=== PATIENT | female | born 1960 | race Caucasian/White ===

== ENCOUNTER → 2016-10-11 | Outpatient (CLI) | payer BC | LOC: MAMMO 08:45 | DX: Z12.31 Encounter for screening mammogram for malignant neoplasm of breast (principal) | CPT/HCPCS: G0202 ==

== ENCOUNTER → 2018-08-27 | Outpatient (CLI) | payer BC ==
[~2018-08-27] VITALS: Ht 157.5 cm; Wt 91.4 kg
[~2018-08-27] MED LIST: EUTHYROX100 MCG PO; NOVOLOG 100U100 U/ML SQ; PRISTIQ50 M1 PO; RAMIPRIL5 MG PO; SPIRONOLACTONE/1 TAB PO; TOPROL-XL200 MG PO; WELLBUTRIN XL150 M2 PO; ZOCOR40 M1 PO
[2018-08-27 09:47] VITALS: BP 132/74
[2018-08-27 10:24] LABS: HEMATOCRIT 47.2 % (37.0-47.0); HEMOGLOBIN 15.4 g/dL (12.5-16.0); MEAN PLATELET VOLUME 10.5 fl (7.4-10.4); RED BLOOD COUNT 5.45 M/mm3 (4.10-5.30); RED CELL DISTRIBUTION WIDTH 13.8 % (11.5-14.5)
[2018-08-27 10:49] LABS: ALBUMIN 4.5 g/dL (3.5-5.0); CALCIUM 9.3 mg/dL (8.4-10.2); POTASSIUM 4.5 mmol/L (3.6-5.0); TOTAL BILIRUBIN 0.7 mg/dL (0.2-1.3); TOTAL PROTEIN 7.8 g/dL (6.3-8.2)
[2018-08-27 11:18] VITALS: BP 111/60
== END ==
LOC: AMSURD 09:28
PROVIDERS: Nurse Practitioner
DX: E86.0 Dehydration (principal)
CPT/HCPCS: J7030

== ENCOUNTER → 2018-11-08 | Outpatient (CLI) | payer BC ==
[2018-08-27 11:18] VITALS: BP 111/60
== END ==
LOC: RAD 17:40
DX: J18.9 Pneumonia, unspecified organism (principal)

== ENCOUNTER → 2019-02-19 | Outpatient (CLI) | payer BC ==
[2018-08-27 11:18] VITALS: BP 111/60
== END ==
LOC: MAMMO 09:02
DX: Z12.31 Encounter for screening mammogram for malignant neoplasm of breast (principal)

== ENCOUNTER → 2019-04-10 | Outpatient (CLI) | payer BC ==
[2018-08-27 11:18] VITALS: BP 111/60
[2019-04-10 16:15] LABS: D-DIMER 0.11 mg/L FEU (0.15-0.50)
== END ==
LOC: LAB 15:31
PROVIDERS: Nurse Practitioner
DX: M79.601 Pain in right arm (principal)

== ENCOUNTER → 2020-03-18 | Outpatient (CLI) | payer BC ==
[2018-08-27 11:18] VITALS: BP 111/60
== END ==
LOC: LAB 18:10
DX: R30.0 Dysuria (principal)

== ENCOUNTER → 2020-07-16 | Outpatient (CLI) | payer BC ==
[2018-08-27 11:18] VITALS: BP 111/60
[2020-07-16 08:33] LABS: POTASSIUM 4.3 mmol/L (3.5-5.1)
[2020-07-16 08:34] LABS: CALCIUM 9.3 mg/dL (8.3-10.5)
[2020-07-16 08:35] LABS: TOTAL PROTEIN 7.2 g/dL (6.4-8.3)
[2020-07-16 08:37] LABS: TOTAL BILIRUBIN 0.4 mg/dL (0.2-1.2)
[2020-07-16 08:49] LABS: BASO # 0.1 (0.02-0.10); EOS # 0.2 (0.04-0.40); EOS % 2.6 % (1.0-5.0); HEMATOCRIT 49.2 % (37.0-47.0); HEMOGLOBIN 16.2 g/dL (12.5-16.0); LYMPH# 1.6 (1.50-4.00); MEAN CELL VOLUME 87 fl (78-100); MEAN CORPUSCULAR HEMOGLOBIN 29 pg (27-31); MEAN CORPUSCULAR HGB CONC 33 g/dL (33-37); MONO # 0.8 (0.20-0.80); NEU # 4.5 (1.40-6.50); PLATELET COUNT 285 K/mm3 (130-400); RED BLOOD COUNT 5.65 M/mm3 (4.10-5.30); RED CELL DISTRIBUTION WIDTH 13.4 % (11.5-14.5); WHITE BLOOD COUNT 7.2 K/mm3 (4.8-10.8)
[2020-07-16 09:16] LABS: URINE APPEARANCE CLEAR; URINE BILIRUBIN NEGATIVE (NEGATIVE); URINE BLOOD 250 ery/uL (NEGATIVE); URINE COLOR YELLOW; URINE GLUCOSE NEGATIVE (NEGATIVE); URINE KETONE NEGATIVE (NEGATIVE); URINE LEUKOCYTE ESTERASE NEGATIVE (NEGATIVE); URINE NITRATE NEGATIVE (NEGATIVE); URINE PROTEIN(semi-quant) 1+ mg/dL (NEGATIVE); URINE UROBILINOGEN NORMAL (NORMAL)
== END ==
LOC: LAB 07:55
PROVIDERS: Family Medicine
DX: Z00.00 Encounter for general adult medical examination without abnormal findings (principal); E78.5 Hyperlipidemia, unspecified; E11.9 Type 2 diabetes mellitus without complications; E66.01 Morbid (severe) obesity due to excess calories

== ENCOUNTER → 2020-08-24 | Outpatient (CLI) | payer BC ==
[2018-08-27 11:18] VITALS: BP 111/60
== END ==
LOC: MAMMO 07:00 → RAD 07:00
DX: Z12.31 Encounter for screening mammogram for malignant neoplasm of breast (principal); R31.29 Other microscopic hematuria
CPT/HCPCS: Q9967

== ENCOUNTER → 2020-12-14 | Outpatient (CLI) | payer BC | LOC: RAD 15:29 | DX: R05 Cough (principal) ==

== ENCOUNTER → 2021-08-20 | Outpatient (CLI) | payer BC ==
[2021-08-20 08:13] LABS: BASO # 0.08 K/mm3 (0.02-0.10); EOS # 0.21 K/mm3 (0.04-0.40); EOS % 2.9 % (1.0-5.0); HEMOGLOBIN 15.7 g/dL (12.5-16.0); LYMPH# 1.97 K/mm3 (1.50-4.00); MEAN CELL VOLUME 88 fl (78-100); MEAN CORPUSCULAR HEMOGLOBIN 30 pg (27-31); MEAN CORPUSCULAR HGB CONC 33 g/dL (33-37); MEAN PLATELET VOLUME 10.4 fl (7.4-10.4); MONO # 0.44 K/mm3 (0.20-0.80); NEU # 4.48 K/mm3 (1.40-6.50); PLATELET COUNT 323 K/mm3 (130-400); RED BLOOD COUNT 5.32 M/mm3 (4.10-5.30); RED CELL DISTRIBUTION WIDTH 13.1 % (11.5-14.5); WHITE BLOOD COUNT 7.2 K/mm3 (4.8-10.8)
[2021-08-20 08:18] LABS: ALBUMIN 4.1 g/dL (3.5-5.0); POTASSIUM 4.9 mmol/L (3.5-5.1)
[2021-08-20 08:19] LABS: CALCIUM 9.7 mg/dL (8.3-10.5)
[2021-08-20 08:20] LABS: TOTAL PROTEIN 7.5 g/dL (6.4-8.3)
[2021-08-20 08:22] LABS: TOTAL BILIRUBIN 0.5 mg/dL (0.2-1.2)
[2021-08-20 10:34] LABS: URINE APPEARANCE HAZY; URINE BILIRUBIN NEGATIVE (NEGATIVE); URINE BLOOD TRACE (NEGATIVE); URINE COLOR YELLOW; URINE GLUCOSE NEGATIVE (NEGATIVE); URINE KETONE NEGATIVE (NEGATIVE); URINE LEUKOCYTE ESTERASE NEGATIVE (NEGATIVE); URINE NITRATE NEGATIVE (NEGATIVE); URINE PROTEIN(semi-quant) TRACE (NEGATIVE); URINE UROBILINOGEN NORMAL (NORMAL); URINE WBC 0-1 /hpf (0-3)
== END ==
LOC: LAB 07:32
PROVIDERS: Family Medicine
DX: Z00.00 Encounter for general adult medical examination without abnormal findings (principal); E78.5 Hyperlipidemia, unspecified; E11.9 Type 2 diabetes mellitus without complications; E03.9 Hypothyroidism, unspecified; R31.29 Other microscopic hematuria

== ENCOUNTER → 2021-09-16 | Outpatient (CLI) | payer BC | LOC: MAMMO 09:01 | DX: Z12.31 Encounter for screening mammogram for malignant neoplasm of breast (principal) ==

== ENCOUNTER → 2022-09-07 | Outpatient (CLI) | payer BC ==
[2022-09-07 12:16] LABS: BASO # 0.06 K/mm3 (0.02-0.10); EOS # 0.23 K/mm3 (0.04-0.40); EOS % 2.6 % (1.0-5.0); HEMOGLOBIN 15.2 g/dL (12.5-16.0); MEAN CELL VOLUME 87 fl (78-100); MEAN CORPUSCULAR HEMOGLOBIN 30 pg (27-31); MEAN CORPUSCULAR HGB CONC 34 g/dL (33-37); MEAN PLATELET VOLUME 9.6 fl (7.4-10.4); MONO # 0.56 K/mm3 (0.20-0.80); NEU # 5.23 K/mm3 (1.40-6.50); PLATELET COUNT 265 K/mm3 (130-400); RED BLOOD COUNT 5.16 M/mm3 (4.10-5.30); RED CELL DISTRIBUTION WIDTH 12.4 % (11.5-14.5); WHITE BLOOD COUNT 8.8 K/mm3 (4.8-10.8)
== END ==
LOC: LAB 11:14
PROVIDERS: Nurse Practitioner Family
DX: R05.9 Cough, unspecified (principal)

== ENCOUNTER → 2024-05-28 | Outpatient (CLI) | payer BC | LOC: RAD 11:28 | DX: Z12.31 Encounter for screening mammogram for malignant neoplasm of breast (principal); M19.042 Primary osteoarthritis, left hand; M19.041 Primary osteoarthritis, right hand ==

== ENCOUNTER → 2024-06-05 | Outpatient (CLI) | payer BC | LOC: MAMMO 13:30 | DX: Z12.39 Encounter for other screening for malignant neoplasm of breast (principal); M79.641 Pain in right hand; M79.642 Pain in left hand ==

== ENCOUNTER 2024-09-23 10:28 | Emergency (ER) | payer BC ==
[2024-09-23] MEDS ORDERED: Ondansetron 4 MG/2 ML VIAL IV ONE (11:15)
[2024-09-23] MEDS ORDERED: NS 1,000 ML IV SCH (11:15)
[2024-09-23 11:31] LABS: BASO # 0.01 K/mm3 (0.02-0.10); EOS # 0.17 K/mm3 (0.04-0.40); EOS % 1.8 % (1.0-5.0); HEMATOCRIT 49.8 % (37.0-47.0); HEMOGLOBIN 16.7 g/dL (12.5-16.0); LYMPH# 1.76 K/mm3 (1.50-4.00); MEAN CELL VOLUME 87 fl (78-100); MEAN CORPUSCULAR HEMOGLOBIN 29 pg (27-31); MEAN CORPUSCULAR HGB CONC 34 g/dL (33-37); MEAN PLATELET VOLUME 10.3 fl (7.4-10.4); MONO # 0.87 K/mm3 (0.20-0.80); NEU # 6.69 K/mm3 (1.40-6.50); PLATELET COUNT 328 K/mm3 (130-400); RED CELL DISTRIBUTION WIDTH 13.5 % (11.5-14.5); WHITE BLOOD COUNT 9.5 K/mm3 (4.8-10.8)
[2024-09-23 11:35] LABS: ALBUMIN 3.7 g/dL (3.4-4.8)
[2024-09-23 11:36] LABS: CALCIUM 8.7 mg/dL (8.3-10.5)
[2024-09-23 11:39] LABS: TOTAL BILIRUBIN 0.4 mg/dL (0.2-1.2)
[2024-09-23] MEDS ORDERED: Loperamide 2 MG CAP PO ONE (12:00)
[2024-09-23] MEDS ORDERED: ZOFRAN ODT4 MG PO (13:15)
[2024-09-23] MEDS ORDERED: PHENTERMINE H37.5 M2 PO (13:19)
[2024-09-23] MEDS ORDERED: VILAZODONE HCL20 MG PO (13:20)
[2024-09-23 13:35] VITALS: BP 152/83
== END 2024-09-23 13:35 | disposition home or self-care (01) ==
LOC: ED 10:28
PROVIDERS: Physician Assistant
DX: K52.9 Noninfective gastroenteritis and colitis, unspecified (principal); Z90.49 Acquired absence of other specified parts of digestive tract
CPT/HCPCS: J2405; J7030

== ENCOUNTER 2024-09-24 08:17 | Observation (INO) | payer BC ==
[~2024-09-24] VITALS: Ht 157.5 cm; Wt 90.3 kg
[~2024-09-24 08:17] MED LIST changes: +PHENTERMINE H37.5 M2 PO; +VILAZODONE HCL20 MG PO; +ZOFRAN ODT4 MG PO
[2024-09-24] MEDS ORDERED: NS 1,000 ML IV SCH ×2 (09:00→11:00)
[2024-09-24 09:14] LABS: BASO # 0.01 K/mm3 (0.02-0.10); EOS # 0.31 K/mm3 (0.04-0.40); HEMATOCRIT 53.1 % (37.0-47.0); HEMOGLOBIN 17.4 g/dL (12.5-16.0); MEAN CELL VOLUME 89 fl (78-100); MEAN CORPUSCULAR HEMOGLOBIN 29 pg (27-31); MEAN CORPUSCULAR HGB CONC 33 g/dL (33-37); MEAN PLATELET VOLUME 10.9 fl (7.4-10.4); MONO # 0.69 K/mm3 (0.20-0.80); NEU # 7.65 K/mm3 (1.40-6.50); PLATELET COUNT 394 K/mm3 (130-400); RED BLOOD COUNT 5.94 M/mm3 (4.10-5.30); RED CELL DISTRIBUTION WIDTH 13.6 % (11.5-14.5); WHITE BLOOD COUNT 10.4 K/mm3 (4.8-10.8)
[2024-09-24 09:16] LABS: ALBUMIN 4.1 g/dL (3.4-4.8); SODIUM 135 mmol/L (136-145)
[2024-09-24 09:19] LABS: GLUCOSE 371 mg/dL (65-105); TOTAL PROTEIN 7.7 g/dL (6.2-8.1)
[2024-09-24 09:21] LABS: TOTAL BILIRUBIN 0.4 mg/dL (0.2-1.2)
[2024-09-24 09:22] LABS: CARBON DIOXIDE 15 mmol/L (23-31)
[2024-09-24 09:24] LABS: AST-SGOT 18 U/L (5-34)
[2024-09-24 09:25] LABS: ALT/SGPT 21 U/L (0-55)
[2024-09-24 09:26] LABS: LIPASE < 4 U/L (8-78)
[2024-09-24] MEDS ORDERED: Iohexol 300 - 100 ML VIAL IV ONE (09:31)
[2024-09-24] MEDS ORDERED: NS 100 ML IV SCH (09:32)
[2024-09-24] MEDS ORDERED: Ondansetron 4 MG/2 ML VIAL IV PRN (10:45)
[2024-09-24] MEDS ORDERED: Acetaminophen 325 MG TAB PO PRN (10:45)
[2024-09-24] MEDS ORDERED: Pantoprazole 40 MG in NS 10 ML IV SCH (10:45)
--- NOTE | 2024-09-24 11:00 | NUR ---
Pt admits to room 208 from ED. Is Ox4, denies pain, VSS. Reports diarrhea x 3 while in ED this AM and several episodes since arrival to room. IV fluids infusing to IV RAC. Pt has own insulin pump to site L upper abdomen. Site is CDI, without redness. Pt reports placing it within last 2-3 days. Current fsbs 261. Basal rate humalog 32.6u/24 hours. Pt denies feeling dizzy/lightheaded. Stands without assist. Given room privledges. at bedside. Pt sitting in recliner, call light and belongings within reach.
[2024-09-24 12:19] VITALS: BP 149/76
--- NOTE | 2024-09-24 12:30 | NUR ---
Discussed policy regarding using pt own external insulin pump. Pt understood and agreed to sign agreement.
[2024-09-24] MEDS ORDERED: Nicotine 14 MG DAILY PATCH TD SCH (14:03)
--- NOTE | 2024-09-24 14:15 | NUR ---
Pt comes to nurses station to request nicotine patch. Inform that I just pulled it, provider had been busy and just got order placed. Follow back to room. Pt lying in bed, states that she does not feel good. On elaboration, reports feeling "everything is stuck in my chest." Wants to know if fluids can be stopped. Says that everything that she drank today feels stuck in her chest, then reports wanting to go home. States "I can sleep better in my own bed." "I'm just here for fluids, right?" Speak with JOSE Grajeda, who says that she will speak with pt when time allows. Request that TONY Wyman speak with pt while Nicci is busy. Zamzam agrees to see pt.
--- NOTE | 2024-09-24 14:45 | NUR ---
Upon stepping out of another pt room, pt standing in doorway, requests this RN to pt room. Pt standing at bedside, wants to know if she is being discharged. Has friend in room, says she has never seen pt this anxious. Inform pt that Nicci is unable to come to bedside but Zamzam is planning to come see her. Pt asks if she is going to be discharged. Tell her she will have to wait for Zamzam to see her. Pt asks if she can walk in the halls. Tell pt that because of her isolation precautions, she cannot walk halls. Also not permitted to go outside.
[2024-09-24] MEDS ORDERED: hydrOXYzine HCl 25 MG TAB PO ONE (15:00)
[2024-09-24 15:19] VITALS: BP 130/67
--- NOTE | 2024-09-24 17:15 | NUR ---
Discussed discharge instructions with pt and . Both acknowledge understanding. IV d/c from RAC, complete and intact. Pt and belongings escorted from facility via ambulation.
== END 2024-09-24 17:15 | disposition home or self-care (01) ==
LOC: ED 08:17 → MED/SURG 10:38
PROVIDERS: Physician Assistant; ADMIT Family Medicine
DX: N17.9 Acute kidney failure, unspecified (principal); E11.65 Type 2 diabetes mellitus with hyperglycemia; E87.20 Acidosis, unspecified; F17.210 Nicotine dependence, cigarettes, uncomplicated; Z96.41 Presence of insulin pump (external) (internal); Z79.4 Long term (current) use of insulin
CPT/HCPCS: J2470; J7030; Q0177; Q9967